=== PATIENT | male | born 1995 | race Caucasian/White ===

== ENCOUNTER 2017-03-11 17:16 | Emergency (ER) | payer SELFPAY ==
[~2017-03-11] VITALS: Ht 177.8 cm; Wt 118.8 kg
[~2017-03-11 17:16] MED LIST: PERCOCET 5/31 TABLET PO; SILVADENE20 GM TP
[2017-03-11 20:07] LABS: IMM.PLATELET FRACTION 6.5 (1-7); MCH 31.3 PG (29.0-34.0); MCHC 34.8 G/DL (30.0-36.0); MEAN PLAT.VOLUME 11.1 uM^3 (9.0-12.4); PLATELET COUNT 235 K/uL (156-360); RBC DIS.WIDTH-SD 39.5 % (39-53); RED BLOOD COUNT 5.11 M/uL (4.00-5.50); WHITE BLOOD COUNT 7.2 K/uL (4.1-10.2)
[2017-03-11 20:14] LABS: CHLORIDE 102 mEq/L (99-109); POTASSIUM 3.9 mEq/L (3.7-5.4); SODIUM 139 mEq/L (136-147)
[2017-03-11 20:16] LABS: GLUCOSE 85 mg/dL (70-99)
[2017-03-11 20:17] LABS: ANION GAP 11 MEQ/L (2-14)
[2017-03-11 20:18] LABS: TOTAL BILIRUBIN 1.4 mg/dL (0.0-1.0)
[2017-03-11 20:20] LABS: ALKALINE PHOSPHATASE 75 IU/L (3-129); GFR ESTIMATE (CALCULATED) > 59 mL/min/
[2017-03-11 20:21] LABS: UREA NITROGEN (BUN) 13 mg/dL (9-23)
[2017-03-11 20:23] LABS: LIPASE 16 U/L (1.0-51.0)
[2017-03-11 21:04] VITALS: BP 134/75
== END 2017-03-11 21:06 | disposition home or self-care (01) ==
LOC: EME 17:16
PROVIDERS: Emergency Medicine
DX: R10.9 Unspecified abdominal pain (principal); Z87.891 Personal history of nicotine dependence
CPT/HCPCS: 74020; 80053; 83690; 85027; 99281; 99284

== ENCOUNTER 2017-06-07 18:09 | Emergency (ER) | payer OTHER ==
[~2017-06-07] VITALS: Ht 177.8 cm; Wt 111.7 kg
[2017-06-07 18:43] LABS: HEMATOCRIT 45.7 % (38.0-50.0); HEMOGLOBIN 16.2 G/DL (12.5-16.6); MCH 31.9 PG (29.0-34.0); MCHC 35.4 G/DL (30.0-36.0); PLATELET COUNT 244 K/uL (156-360); RBC DIS.WIDTH-SD 39.3 % (39-53); RED BLOOD COUNT 5.08 M/uL (4.00-5.50); WHITE BLOOD COUNT 5.3 K/uL (4.1-10.2)
[2017-06-07 18:57] LABS: ALBUMIN 4.7 g/dL (3.2-4.8); CHLORIDE 104 mEq/L (99-109); POTASSIUM 4.1 mEq/L (3.7-5.4); SODIUM 139 mEq/L (136-147)
[2017-06-07 19:00] LABS: GLUCOSE 114 mg/dL (70-99); TOTAL PROTEIN 7.5 g/dL (6.4-8.3)
[2017-06-07 19:02] LABS: TOTAL BILIRUBIN 1.3 mg/dL (0.0-1.0)
[2017-06-07 19:03] LABS: ALKALINE PHOSPHATASE 83 IU/L (3-129); GFR ESTIMATE (CALCULATED) > 59 mL/min/ (58.99-99999)
[2017-06-07 19:04] LABS: UREA NITROGEN (BUN) 13 mg/dL (9-23)
[2017-06-07 19:05] LABS: AST (GOT) 18 IU/L (2-34)
[2017-06-07 19:06] LABS: ALT (GPT) 23 IU/L (3-49)
[2017-06-07 19:47] LABS: LIPASE 15 U/L (1.0-51.0)
[2017-06-07] MEDS ORDERED: BENTYL20 MG PO (21:02)
[2017-06-07] MEDS ORDERED: OMEPRAZOLE40 M1 PO (21:02)
[2017-06-07] MEDS ORDERED: CARAFATE1 GM PO (21:02)
[2017-06-07 21:12] LABS: APPEARANCE CLOUDY ((CLEAR)); BILIRUBIN NEGATIVE; BLOOD NEGATIVE; COLOR YELLOW ((YELLOW)); GLUCOSE (STRIP) NEGATIVE; KETONES NEGATIVE; LEUKOCYTES NEGATIVE; NITRITE NEGATIVE; PROTEIN (STRIP) NEGATIVE; SPECIFIC GRAVITY 1.024 (1.000-1.030); UROBILINOGEN 0.2 MG/DL (0.2-1.0)
[2017-06-07 21:36] LABS: AMORPHOUS URATES CRYSTALS 3+; BACTERIA NONE SEEN /HPF; EPITHELIAL CELLS NONE SEEN /HPF; MUCUS NONE SEEN /LPF; RED BLOOD CELLS NONE SEEN /HPF (0-5); UCUL ADDED? NO; WHITE BLOOD CELLS NONE SEEN /HPF (0-5)
[2017-06-07 21:47] VITALS: BP 131/73
== END 2017-06-07 21:48 | disposition home or self-care (01) ==
LOC: EME 18:09
DX: R10.13 Epigastric pain (principal); K57.90 Diverticulosis of intestine, part unspecified, without perforation or abscess without bleeding; Z87.891 Personal history of nicotine dependence
CPT/HCPCS: 76705; 80053; 81003; 83690; 85027; 99281; 99284; J1885